=== PATIENT | male | born 1980 | race Caucasian/White ===

== ENCOUNTER 2018-11-04 19:38 | Emergency (ER) | payer OTHER ==
[~2018-11-04] VITALS: Ht 182.9 cm; Wt 100.2 kg
[2018-11-04 19:55] VITALS: BP 114/69
--- NOTE | 2018-11-04 19:57 | NUR ---
PT AMBULATORY TO ER LOBBY W/ STEADY GAIT IN STABLE CONDITION.
--- NOTE | 2018-11-04 20:24 | NUR ---
PATIENT AMBULATED TO ER BED 7.
--- NOTE | 2018-11-04 20:45 | NUR ---
38/M PRESENTS TO ED, C/O 5/10 INTERMITTENT SHARP L ELBOW PAIN, RADIATING TO L FA WITH A TINGLING SENSATION, WORSENED BY L ARM EXTENSION, X5 HRS. S/P ROLLING A HEAVY DOLLEY DOWN A RAMP WHILE WORKING. NO OBVIOUS ABNORMALITY, BRUISING OR SWELLING NOTED, +SLIGHT TENDERNESS, +CMS. DENIES MED HX OR RX.
[2018-11-04] MEDS ORDERED: KETOROLAC 60 MG/2 ML VIAL IM ONE (22:30)
--- NOTE | 2018-11-04 22:37 | NUR ---
PLACED AN DIVINE WRAP ON PT'S LEFT ELBOW WELL A SLING. PT ACCEPTED BOTH WITHOUT ISSUE.
--- NOTE | 2018-11-04 22:43 | NUR ---
PT SITTING IN BED, AT BEDSIDE. VSS, REPORTS 5/10 L ELBOW PAIN, ADMINISTERED TORADOL IM WITH EDUCATION, PT VERBALIZED UNDERSTANDING, TOLERATED MED WELL. ALL NEEDS MET.
--- NOTE | 2018-11-04 22:45 | NUR ---
Note undone in EDM - 11/04/18 at 2300 by JOSIE Patient discharged with v/s stable. Written and verbal after care instructions given and explained. Patient alert, oriented and verbalized understanding of instructions. Ambulatory with steady gait. All questions addressed prior to discharge. ID band removed. Patient advised to follow up with PMD. Rx of NAPROSYN given. Patient educated on indication of medication including possible reaction and side effects. Opportunity to ask questions provided and answered.
--- NOTE | 2018-11-04 22:45 | NUR ---
DR PETTY AT BEDSIDE
[2018-11-04 22:52] VITALS: BP 124/78
--- NOTE | 2018-11-04 22:52 | NUR ---
Note [email or web address] in EDM - 11/04/18 at 2301 by JOSIE Patient discharged with v/s stable. Written and verbal after care instructions given and explained. Patient alert, oriented and verbalized understanding of instructions. Ambulatory with steady gait. All questions addressed prior to discharge. ID band removed. Patient advised to follow up with PMD. Rx of NAPROSYN given. Patient educated on indication of medication including possible reaction and side effects. Opportunity to ask questions provided and answered.
--- NOTE | 2018-11-04 22:52 | NUR ---
Patient discharged with v/s stable. Written and verbal after care instructions given and explained by Dr. Negrete. Patient alert, oriented and verbalized understanding of instructions by Dr. Negrete. Ambulatory with steady gait. All questions addressed prior to discharge by Dr. Negrete. ID band removed. Patient advised to follow up with PMD. Rx of NAPROSYN given by Dr. Negrete. Patient educated on indication of medication including possible reaction and side effects. Opportunity to ask questions provided and answered by Dr. Negrete.
== END 2018-11-04 22:52 | disposition home or self-care (01) ==
LOC: MED 19:38
DX: M77.9 Enthesopathy, unspecified (principal)
CPT/HCPCS: 73080; 96372; 99283; J1885